=== PATIENT | male | born 1950 | race Caucasian/White ===

== ENCOUNTER → 2023-04-25 13:21 | Outpatient (REF) | payer MEDICARE, SELFPAY | LOC: RAD 13:21 | PROVIDERS: ATTENDING PHYSICIAN Internal Medicine | DX: M79.604 Pain in right leg (principal) | CPT/HCPCS: 73502; 73552; 73564 ==

== ENCOUNTER → 2023-05-07 12:51 | Outpatient (REF) | payer MEDICARE, SELFPAY ==
[2023-05-07 14:25] LABS: Blood Urea Nitrogen 30 mg/dl (9-20); Calcium 9.3 mg/dl (8.4-10.2); Carbon Dioxide 26 mmol/L (22-30); Chloride 100 mmol/L (98-107); Glucose 119 mg/dl (70-99); Potassium 4.5 mmol/L (3.5-5.1); Sodium 139 mmol/L (135-145); eGFR 58.73
== END ==
LOC: REG 12:51
PROVIDERS: ATTENDING PHYSICIAN Internal Medicine Cardiovascular Disease; FAMILY PHYSICIAN Internal Medicine
DX: I10 Essential (primary) hypertension (principal)
CPT/HCPCS: 36415; 80048

== ENCOUNTER 2023-06-24 06:23 | Inpatient (IN) | payer MEDICARE, SELFPAY ==
--- NOTE | 2023-06-03 09:48 | CM ---
Addendum entered by Tereza Hernandez 06/19/23 10:12:
Spoken again with patient. He obtained a rolling walker, forearm crutches, shower seat and hip kit. He states that his will be off from work for three days (she works from home).
Original Note:
Patient is scheduled for an elective R THR on 06/24/23. Spoke with patient prior to surgery via telephone. Introduced role of Orthopedic Navigator. Patient reports that he lives with his significant in a two story home. There are four steps to enter
and a flight of steps to the second floor. There is a full bathroom on the order entry clerk and he can have a first floor set up. 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 He uses a rollator
in the house and two walking sticks outside. He has no other DME. He has had VN services. PCP is Dr. Kin Morales.
Discussed orthopedic program and post surgical plans. Reviewed anticipated length of stay and that goal is for him to return home at discharge. Also reviewed outpatient PT and other options for discharge should he not be independent at discharge.
Patient is in agreement with tentative plan and will go directly to outpatient PT at [facility] if able to go home. He will have support from his significant other when he goes home.
Patient will complete online education.
Plan: Orthopedic Navigator will remain available to assist with the care of patient and will reassess discharge needs after surgery.
[2023-06-10 09:03] VITALS: BMI 22.0
[2023-06-10 10:09] LABS: Hematocrit 36.9 % (39.0-52.0); Hemoglobin 12.1 g/dL (13.0-18.0); Mean Corp Hgb Conc. 32.8 g/dL (33.0-37.0); Mean Corpuscular Hgb 28.5 pg (27.0-31.0); Mean Platelet Volume 10.3 fL (7.4-10.4); Platelet Count 283 10^3/uL (130-400); Red Blood Cell Count 4.24 10^6/uL (4.70-6.10); Red Cell Dist. Width 13.1 % (11.5-14.5); White Blood Cell Count 10.8 10^3/uL (4.8-10.8)
[2023-06-10 10:16] LABS: ALT (SGPT) 19 U/L (0-50); AST (SGOT) 21 U/L (17-59); Albumin 3.7 g/dl (3.5-5.0); Alkaline Phosphatase 165 U/L (38-126); Blood Urea Nitrogen 24 mg/dl (9-20); Calcium 9.2 mg/dl (8.4-10.2); Carbon Dioxide 24 mmol/L (22-30); Chloride 105 mmol/L (98-107); Estimated Creatinine Clearance 61 ml/min; Glucose 126 mg/dl (70-99); Sodium 137 mmol/L (135-145); Total Bilirubin 0.4 mg/dl (0.2-1.3); Total Protein 5.9 g/dl (6.3-8.2); eGFR > 60.00
[2023-06-10 14:41] VITALS: BMI 22.0
[2023-06-24] VITALS (15 sets, daily range): BP systolic 108–136; BP diastolic 59–74; PULSE 66; O2SAT 100; BMI 20.1
[2023-06-24] MEDS: NORMOSOL-R 1000 IV ×2 (09:11→12:59)
[2023-06-24] MEDS: TYLENOL 650 MG PO ×4 (09:12→23:00)
[2023-06-24] MEDS: CELEBREX 200 MG PO (09:12)
--- NOTE | 2023-06-24 12:34 | W.PN.UPDATE ---
Update Note
Progress Note Update
R hip OA s/p R GOOD w/ Dr Hdez 06/24/2023
DVT prophylaxis - ASA, b/l venous foot pumps
HTN - + parameters - monitor BP
GERD - add Pepcid HS
Balance difficulties, ambulatory dysfunction, and chronic left footdrop - on fall precautions
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
MGUS - non-invasive hgb in AM
Neurogenic bladder requiring self catheterization - continue self cath
- Add Flomax to help w/ urination
C. diff colitis 2004 - reportedly due to prolonged Prednisone use previously - minimize steroids post-op if able
Hypercholesterolemia
Coronary artery disease/myocardial infarction, 2010, status post PCI with stent x2
Ischemic cardiomyopathy, resolved
Lung abscess, 09/2004, status post right partial lobectomy
Chronic dyspnea on exertion
Recurrent small-bowel obstructions
Hirschsprung's disease, status post multiple surgical corrections
Colorectal cancer, 1999, status post transanal resection; recurrence in 2004, status post permanent colostomy, radiation, and chemotherapy
Non-Hodgkin lymphoma, 2015, status post chemotherapy
Lumbar degenerative disc disease
Insomnia
COVID-2019, without residual deficits
Prediabetes, A1c 6.0
Remote history of tobacco abuse
[2023-06-24] MEDS: ROXICODONE 5 MG PO ×2 (13:02→21:30)
--- NOTE | 2023-06-24 13:39 | PTCARENOTE ---
Patient received from PACU in bed; IVF infusing; Surgical site assessed with MOLYBDENUM STEAMER OPERATOR; Right hip aquacell C/D/I; Left side colostomy intact with patient's own appliance over stoma; Bilateral pedal pulses +2, tibial pulses +2; Patient able to lift
left leg, trace movement in right; Patient with baseline neuropathy to bilateral feet; Unable to feel feet and ankles at baseline; Assessment ongoing
[2023-06-24] MEDS: LIPITOR 10 MG PO (14:10)
[2023-06-24] MEDS: FLOMAX 0.400000000000000022 MG PO (14:10)
[2023-06-24] MEDS: ASPIRIN 325 MG PO (17:02)
[2023-06-24] MEDS: ANCEF 5 IV (17:02)
[2023-06-24] MEDS: COLACE 100 MG PO (20:14)
[2023-06-24] MEDS: BACTROBAN 2% OINTMENT 1 APPLIC NASAL (20:15)
[2023-06-24] MEDS: PEPCID 20 MG PO (21:29)
[2023-06-24] MEDS: DILAUDID 0.5 MG IV (23:16)
[2023-06-25] MEDS: ROXICODONE 10 MG PO ×2 (01:17→05:09)
[2023-06-25] MEDS: ANCEF 5 IV (01:18)
[2023-06-25 02:53] VITALS: BP 122/59
[2023-06-25] MEDS: TYLENOL 650 MG PO ×3 (05:07→11:02)
[2023-06-25 07:43] VITALS: BP 132/68
[2023-06-25] MEDS: ASPIRIN 325 MG PO (08:25)
[2023-06-25] MEDS: BACTROBAN 2% OINTMENT 1 APPLIC NASAL (08:25)
[2023-06-25] MEDS: CELEBREX 200 MG PO (08:25)
[2023-06-25] MEDS: COLACE 100 MG PO (08:26)
[2023-06-25] MEDS: LIPITOR 10 MG PO (08:26)
[2023-06-25] MEDS: FLOMAX 0.400000000000000022 MG PO (08:26)
[2023-06-25] MEDS: ROXICODONE 5 MG PO ×2 (08:34→12:35)
--- NOTE | 2023-06-25 08:43 | CM ---
Addendum entered by Tereza Hernandez 06/25/23 11:14:
Patient did well in therapy. He has no concerns about going home. He would like his significant other to be present for discharge instructions; RN aware.
Original Note:
Reviewed chart and held rounds with PT, OT and nursing. Patient admitted as planned for elective R THR. Met with patient at bedside. Confirmed information previously obtained for assessment. Also discussed discharge plans. The plan, at this time, is
for patient to return home at discharge. He will have support from his significant other when he goes home. Patient will go directly to outpatient PT and will go to [facility]. He has an appointment scheduled for Saturday, 06/25.
Patient has a rolling walker, cane, hip kit, [place] crutches and shower seat.
He will use the [facility] pharmacy for discharge prescriptions.
--- NOTE | 2023-06-25 09:49 | W.PN.ORTHO ---
Today's Communication / Plan
-
Await PT and OT recs.
D/c later today if remaining clinically stable.
Assessment
.
Distal Motor Intact: Yes
Dressing:
Clean, dry and intact.
Assessment:
R hip OA s/p Kala FUNK w/ Dr Hdez 06/24/2023
DVT prophylaxis - ASA, b/l venous foot pumps
HTN - + parameters - BPs overall stable
GERD - added Pepcid HS
Balance difficulties, ambulatory dysfunction, and chronic left footdrop - on fall precautions
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
MGUS - non-invasive hgb 12.2 POD 1
Neurogenic bladder requiring self catheterization - continue self cath
- Added Flomax during admission to help w/ urination
C. diff colitis 2004 - reportedly due to prolonged Prednisone use previously - minimize steroids post-op as able
Hypercholesterolemia
Coronary artery disease/myocardial infarction, 2010, status post PCI with stent x2
Ischemic cardiomyopathy, resolved
Lung abscess, 09/2004, status post right partial lobectomy
Chronic dyspnea on exertion
Recurrent small-bowel obstructions
Hirschsprung's disease, status post multiple surgical corrections
Colorectal cancer, 1999, status post transanal resection; recurrence in 2004, status post permanent colostomy, radiation, and chemotherapy
Non-Hodgkin lymphoma, 2015, status post chemotherapy
Lumbar degenerative disc disease
Insomnia
COVID-2019, without residual deficits
Prediabetes, A1c 6.0
Remote history of tobacco abuse
Plan
.
Surgery / Date: Kala joy/ Dr Hdez 06/24/2023
DVT Prophylaxis: Aspirin
Activity:
Out of bed.
PT/OT
Discharge Plan: Home w/ Outpatient PT
Subjective
.
.:
Patient resting comfortably in bed this AM.
R hip pain overall well tolerated w/ current pain meds.
Denies any new significant complaints.
Eager for potential d/c today.
Vital Signs and Labs
.
Vital Signs and Labs:
Lab Results
06/10/23 08:59
06/10/23 08:59
Temp Pulse Resp BP Pulse Ox
98.1 F 64 19 141/70 96
06/25/23 07:43 06/25/23 08:27 06/25/23 07:43 06/25/23 08:27 06/25/23 07:43
Non-invasive Hgb result: 12.2
Physical Exam
-
HEENT: No pallor, cyanosis, or jaundice. Throat clear.
NECK: Supple. No JVD.
RESPIRATORY: Lungs clear to auscultation.
CVS: S1, S2 normal. RRR.�
ABDOMEN: Soft, non-tender. No distension.
EXTREMITIES: Strength equal, no calf pain with palpation/dorsiflexion. Calves soft. Chronic L foot drop.
ASSISTANT WAREHOUSE MANAGER: AOx3. No focal deficits. service desk associate grossly intact
[2023-06-25 10:08] VITALS: BP 138/65; PULSE 67; O2SAT 97
[2023-06-25 10:58] VITALS: BP 118/58; PULSE 62; O2SAT 97
--- NOTE | 2023-06-25 11:14 | W.DS.TRANS ---
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
-
Discharge Instructions:
Sleep Apnea Risk Intermediate
Discharge Diagnosis/Procedures R hip OA s/p R GOOD w/ Dr Hdez 06/24/2023
Diet Regular
Activity As tolerated,With Walker
Driving Restrictions Not until seen by your Dr
Bathing Restrictions OK to Shower
Other Services PT
Wound Care Dressing to be removed 1 week post-surgery.
Juan Diego to be removed at 2 week follow-up
appointment with surgeon's office.
Instructions:
Stand-Alone Forms: Total Hip/Knee Replacement D/C
Changes to Home Medications: Yes
Discharge Medications:
DC Medications w/original date entered in [employer]
simvastatin 10 mg tablet 10 mg PO DAILY High cholesterol 08/25/14
mupirocin 2 % topical ointment 1 applic intranasal BID #1 tube 06/10/23
acetaminophen 500 mg tablet (Tylenol Extra Strength) 1,000 mg (2 x 500 mg) PO Q6H #60 tabs 06/25/23
amlodipine 10 mg tablet 10 mg PO DAILY #30 tabs 06/25/23
aspirin 325 mg tablet 325 mg PO DAILY #30 tabs 06/25/23
celecoxib 200 mg capsule 200 mg PO DAILY #30 caps 06/25/23
docusate sodium 100 mg capsule 100 mg PO BID #30 caps 06/25/23
famotidine 20 mg tablet 20 mg PO HS #30 tabs 06/25/23
irbesartan 300 mg tablet 300 mg PO DAILY #1 tab 06/25/23
ondansetron HCl 4 mg tablet 4 mg PO Q6H PRN nausea and vomiting #30 tabs 06/25/23
oxycodone 5 mg tablet 5 - 10 mg (1 - 2 x 5 mg) PO Q4H PRN moderate-severe pain #30 tabs 06/25/23
polyethylene glycol 3350 17 gram oral powder packet (Miralax) 17 g PO DAILY PRN Constipation #14 ea 06/25/23
Home Medication Changes
acetaminophen 500 mg tablet (Tylenol Extra Strength) 1,000 mg (2 x 500 mg) PO Q6H #60 tabs 06/25/23
aspirin 325 mg tablet 325 mg PO DAILY #30 tabs 06/25/23
celecoxib 200 mg capsule 200 mg PO DAILY #30 caps 06/25/23
docusate sodium 100 mg capsule 100 mg PO BID #30 caps 06/25/23
famotidine 20 mg tablet 20 mg PO HS #30 tabs 06/25/23
ondansetron HCl 4 mg tablet 4 mg PO Q6H PRN nausea and vomiting #30 tabs 06/25/23
oxycodone 5 mg tablet 5 - 10 mg (1 - 2 x 5 mg) PO Q4H PRN moderate-severe pain #30 tabs 06/25/23
polyethylene glycol 3350 17 gram oral powder packet (Miralax) 17 g PO DAILY PRN Constipation #14 ea 06/25/23
Pending Results: Yes (PTH surgical specimen)
[2023-06-25 11:29] VITALS: BP 136/65
== END 2023-06-25 13:03 | disposition home or self-care (01) | DRG 470 ==
LOC: 2 SOUTH 06:23
PROVIDERS: ADMITTING PHYSICIAN Specialist; FAMILY PHYSICIAN Internal Medicine
PROC: 0SR90JA Replacement of Right Hip Joint with Synthetic Substitute, Uncemented, Open Approach (ICD-10-PCS; 2023-06-24)
DX: M16.11 Unilateral primary osteoarthritis, right hip (principal); M87.851 Other osteonecrosis, right femur; Q43.1 Hirschsprung's disease; I10 Essential (primary) hypertension; E78.00 Pure hypercholesterolemia, unspecified; I25.10 Atherosclerotic heart disease of native coronary artery without angina pectoris; I25.5 Ischemic cardiomyopathy; K21.9 Gastro-esophageal reflux disease without esophagitis; M21.372 Foot drop, left foot; G62.89 Other specified polyneuropathies; M51.36 Other intervertebral disc degeneration, lumbar region; D47.2 Monoclonal gammopathy; N31.9 Neuromuscular dysfunction of bladder, unspecified; G47.00 Insomnia, unspecified; R73.03 Prediabetes; I25.2 Old myocardial infarction; Z95.5 Presence of coronary angioplasty implant and graft; Z87.19 Personal history of other diseases of the digestive system; Z87.09 Personal history of other diseases of the respiratory system; Z85.038 Personal history of other malignant neoplasm of large intestine; Z87.891 Personal history of nicotine dependence; Z92.21 Personal history of antineoplastic chemotherapy; Z92.3 Personal history of irradiation; Z86.16 Personal history of COVID-19; Z86.19 Personal history of other infectious and parasitic diseases; Z93.3 Colostomy status; Z79.82 Long term (current) use of aspirin; Z85.72 Personal history of non-Hodgkin lymphomas
CPT/HCPCS: 88304; 88311; 36415; 73502; 80053; 83036; 85027; 87070; 97110; 97116; 97162; 97166; 97530; 97535; C1713; C1776

== ENCOUNTER 2023-08-20 21:33 | Emergency (ER) | payer MEDICARE, SELFPAY ==
[2023-08-20 21:35] VITALS: BP 122/78
--- NOTE | 2023-08-20 21:48 | ED.GENMED ---
History of Present Illness
General
Chief Complaint: Urinary Symptoms
Source: patient
Exam Limitations: none
Time Seen by Provider: 08/20/23 21:50
Nursing documentation reviewed up to this point in time: agreed with
History of Present Illness
History of Present Illness:
Pt is a 72-year-old male PMH CO, colorectal CA with colostomy, underactive bladder, and recent UTI c/o blood in his urine x 1 hour. He has a recent hx of UTI positive for E. coli diagnosed approximately 2 weeks ago. He was treated with Abx at the
time of his diagnosis. He endorses cloudy urine and 'trace' amounts of blood during this time. Pt adds that he has still been experiencing these sx following completion of his antibiotic regimen. Pt reports that he self-catheterizes 7-8 times daily
for his underactive bladder, and notes that he noticed large amounts of blood following self-catheterization 1 hour ago. He denies fever, pain, burning, itching, N/V, abdominal pain, flank pain, and penile discharge.
-Delroy WHITE
Past History
Past History
ED Past Medical History: CAD, Cancer (Rectal/colon), GERD, HTN, Hypercholesterolemia, CO (with stents), Other (Hirschsprung's disease, and chronic inflammatory demyelinating polyneuropathy) and Other (Pneumonia, Bowel obstruction, Self caths 7-8
times daily, Colostomy, Parkinson like symptoms)
ED Past Surgical History: Bowel resection (with colostomy), Cardiac (stents X2), Urological and Other (R lower lobe removal)
Social History
Tobacco: Former smoker
Alcohol: None
Drug: None
Personal:
Living: alone
Employment: Disabled
Family History
Family History: Hypertension and CAD
Review of Systems
Review of Systems
Allergies reviewed?: Yes
Constitutional: Reports no symptoms
EENT: Reports no symptoms
Respiratory: Reports no symptoms
Cardiac: Reports no symptoms
ABD/GI: Reports no symptoms
: Reports difficulty voiding and other (hematuria )
Musculoskeletal: Reports no symptoms
Skin: Reports no symptoms
Neurological: Reports numbness
Endocrine: Reports no symptoms
Hematologic/Lymphatic: Reports no symptoms
Psychiatric: Reports no symptoms
Phy Exam
General Physical Exam
General Presentation: well appearing
General age: appears stated age
General Skin: warm
General Habitus: elderly
General Mental: alert
General Hydration: appears well hydrated
General Chronic Disability: other (colostomy)
Cardiovascular Exam
Cardiovascular Exam: regular rate/rhythm, no edema, no gallop and no murmur
Pulmonary Exam
Pulmonary Exam: lungs clear, no respiratory distress, no crackles and no wheezing
Genitourinary Exam Male
Exam Male: circumcised, no discharge, normal external genitalia, no evidence of trauma, no lesions, no testicular swelling and no testicular tenderness
Course
Orders/Labs/Results
Orders:
Orders
08/20/23 22:05
Electrocardiogram (*1) Stat
Reason for Study: Other
Other Reason for Exam: neuro symptoms
08/20/23 22:29
Stallings Placement- Treatment ONCE
Reason for insertion: Outlet obstruction
08/21/23 00:36
Urinalysis Reflex To Culture Urgent
08/20/23 22:05
08/20/23 22:05
Vital Signs
Initial and Last Documented VS:
Initial Vital Signs
Temp Pulse Resp BP Pulse Ox
98 F 78 24 122/78 98
08/20/23 21:35 08/20/23 21:35 08/20/23 21:35 08/20/23 21:35 08/20/23 21:35
Last Documented Vital Signs
Temp Pulse Resp BP Pulse Ox
98 F 78 24 122/78 98
08/20/23 21:35 08/20/23 21:35 08/20/23 21:35 08/20/23 21:35 08/20/23 21:35
MDM/Problems Addressed
Differential Diagnosis Includes:
cystitis, pyelonephritis, acute interstitial nephritis, traumatic catheter insertion, bladder CA, renal cell carcinoma.
MDM/Problems Addressed:
Electrocardiogram, Stallings Placement
*Pulse Oximetry
Patient hypoxic: no
*Critical Care Note
Total Time (30-74mins, 75-104mins- exclusive of procedures): Not Applicable
ED Attending Note
ED Attending Note
Patient seen and examined by attending physician: Yes
I performed the substantive portion of visit, reviewed & personally made and approve the management plan that is documented in note by myself or DEEPA.: Yes
ED Attending Note:
Pleasant 72-year-old male who presents with hematuria. Patient has been chronically self cathing due to MGUS or his bowel resections. He states that today when he went to cath he states that he had hematuria. He states that this occurred
approximate 1 hour prior to arrival. Patient was recently treated for a UTI for E. coli. Patient denies fever, chills, nausea or vomiting. Reports no abdominal pain. States that his ostomy has been having good output. Patient was seen in
conjunction with the PA student. I have reviewed and agree with the history and treatment plan presented. On my independent physical exam, patient is awake, alert, and oriented x3, minimal to no acute distress. Ostomy in place. No evidence of
hematuria.
08/21/2023 0035 AM: Urine is clearing up. Now it is slightly blood-tinged.
-
Portions of this chart may have been created with voice recognition software.� Occasional wrong word or��sound alike� substitutions may have occurred due to the inherent limitations of voice recognition software.
Discharge Plan
Departure
Patient Disposition: Home (Routine Discharge)
Date of Disposition: 08/21/23
Time of Disposition: 00:48
Patient with high blood pressure during this ER visit?: Yes
Condition: Good
Discharge Problem:
Hematuria
Instructions: Blood in the Urine (Hematuria), Adult (DC), BLOOD PRESSURE
Prescriptions:
No Action
simvastatin 10 MG tablet
10 mg PO DAILY
mupirocin 2 % ointment
1 applic intranasal BID Qty: 1 0RF
aspirin 325 mg Tablet
325 mg PO DAILY Qty: 30 0RF
Rx Instructions:
Take daily x4 weeks for blood clot prevention; then resume Aspirin 81 mg daily.
celecoxib 200 mg Capsule
200 mg PO DAILY Qty: 30 0RF
Rx Instructions:
Take daily with food.
DO NOT take within 2 hours of Aspirin.
docusate sodium 100 mg Capsule
100 mg PO BID Qty: 30 0RF
famotidine 20 mg Tablet
20 mg PO HS Qty: 30 0RF
Rx Instructions:
Take nightly while on Celebrex and Aspirin to prevent GI upset.
oxycodone 5 mg Tablet
5 - 10 mg PO Q4H PRN (Reason: moderate-severe pain) Qty: 30 0RF
Rx Instructions:
1 tab for moderate pain, 2 if severe.
Dx total joint.
acetaminophen [Tylenol Extra Strength] 500 mg tablet
1,000 mg PO Q6H Qty: 60 0RF
Rx Instructions:
DO NOT exceed >4000 mg daily.
ondansetron HCl 4 mg tablet
4 mg PO Q6H PRN (Reason: nausea and vomiting) Qty: 30 0RF
polyethylene glycol 3350 [Miralax] 17 gram powder in packet
17 g PO DAILY PRN (Reason: Constipation) Qty: 14 0RF
Rx Instructions:
Add to bowel regimen of Colace should no bowel movement occur within 48-72 hours post-surgery.
amlodipine 10 mg tablet
10 mg PO DAILY Qty: 30 0RF
Rx Instructions:
HOLD IF systolic blood pressure <130 while on Oxycodone.
irbesartan 300 mg tablet
300 mg PO DAILY Qty: 1 0RF
Rx Instructions:
HOLD IF systolic blood pressure <130 while on Oxycodone.
Referrals:
Kin Morales MD [Family Provider] -
Activity Restrictions/Additional Instructions:
As discussed, please follow-up with your urologist.
It was a pleasure meeting you and taking part in your care. We hope for your continued healing and wellness.
Please read discharge instructions in their entirety. However, they are for general education and may not describe your exact diagnosis at discharge. Information on your ER visit and medical conditions were discussed with you along with appropriate
follow up information...
If indicated, please take your medications as instructed and indicated on discharge paperwork.
Please schedule a follow up appointment as directed. Call to schedule an appointment
Please return to the emergency department with ANY change in, persisting, or worsening of symptoms. If any of your symptoms do not improve, or persist, or become more severe within 6-12 hours, please return to the emergency department for further
care.
Please return to the emergency department if you develop a headache, neck pain/stiffness, fever greater than 100.4F, chest pain, shortness of breath, persistent nausea, vomiting, slurred speech, difficulty walking, numbness/tingling, weakness, signs
of infection or any other symptoms that are worrisome to you.
If you have any questions or concerns please do not hesitate to call the Hospital at or E-mail me directly at [email or web address]
Interventions
Interventions:
*Risk Screen - Suicide Last Done: 08/20/23 21:35
*General Assessment Last Done: 08/20/23 23:38
*Neglect/Abuse Screening Last Done: 08/20/23 21:35
ED- Fall Risk Assessment Last Done: 08/20/23 23:08
*ED COVID-19 Vaccine History Last Done: 08/20/23 23:38
ED-Male Genitourinary Assessment Last Done: 08/20/23 23:08
Discharge Date and Time
Print Language: DUTCH
[2023-08-20 23:08] VITALS: BMI 21.8
[2023-08-21 01:07] VITALS: BP 146/91
[2023-08-21 01:10] LABS: Urine Albumin Trace (Neg - Trace); Urine Bilirubin Negative (Negative); Urine Character Slightly Cloudy (Clear); Urine Color Amber; Urine Glucose Negative (Negative); Urine Ketone Negative (Negative); Urine Leukocyte 2+ (Negative); Urine Nitrite Negative (Negative); Urine Occult Blood 4+ (Negative); Urine Specific Gravity 1.005 (<1.030); Urine Urobilinogen Negative (Neg - 1+)
[2023-08-21 01:22] LABS: Urine Bacteria Few (Negative); Urine Red Blood Cell >100 /HPF (0-2); Urine White Cell >100 /HPF (0-5)
== END 2023-08-21 01:08 | disposition home or self-care (01) ==
LOC: EMR 21:33
PROVIDERS: EMERGENCY PHYSICIAN Student in an Organized Health Care Education/Training Program; FAMILY PHYSICIAN Internal Medicine
DX: R31.9 Hematuria, unspecified (principal); N32.89 Other specified disorders of bladder; I10 Essential (primary) hypertension; I25.10 Atherosclerotic heart disease of native coronary artery without angina pectoris; E78.00 Pure hypercholesterolemia, unspecified; K21.9 Gastro-esophageal reflux disease without esophagitis; G61.81 Chronic inflammatory demyelinating polyneuritis; Q43.1 Hirschsprung's disease; G62.9 Polyneuropathy, unspecified; M19.90 Unspecified osteoarthritis, unspecified site; D64.9 Anemia, unspecified; M35.9 Systemic involvement of connective tissue, unspecified; I25.2 Old myocardial infarction; Z93.3 Colostomy status; Z79.82 Long term (current) use of aspirin; Z95.5 Presence of coronary angioplasty implant and graft; Z90.2 Acquired absence of lung [part of]; Z85.048 Personal history of other malignant neoplasm of rectum, rectosigmoid junction, and anus; Z87.440 Personal history of urinary (tract) infections; Z92.21 Personal history of antineoplastic chemotherapy; Z87.01 Personal history of pneumonia (recurrent); Z87.891 Personal history of nicotine dependence; Z98.0 Intestinal bypass and anastomosis status
CPT/HCPCS: 99284; 51702; 81003; 81015; 87086

== ENCOUNTER → 2023-10-17 16:39 | Outpatient (REF) | payer MEDICARE, SELFPAY | LOC: CLAB 16:39 | PROVIDERS: ATTENDING PHYSICIAN Surgery | DX: Z87.440 Personal history of urinary (tract) infections (principal); R31.9 Hematuria, unspecified | CPT/HCPCS: 87071; 87077; 87086; 88112 ==

== ENCOUNTER → 2023-12-20 06:40 | Outpatient (REF) | payer MEDICARE, SELFPAY ==
[2023-12-20 09:34] LABS: % Basophils 0.6 % (0-2); % Eosinophils 2.1 % (0-6); % Immature Granulocytes 0.5 % (0-0.5); % Lymphocytes 14.3 % (20.5-51.1); % Monocytes 7.4 % (1.7-9.3); % Neutrophils 75.1 % (42.2-75.2); Absolute Eosinophils 0.1 10^3/uL (0-0.7); Absolute Lymphocytes 0.9 10^3/uL (1.2-3.4); Absolute Monocytes 0.5 10^3/uL (0.1-0.6); Absolute Neutrophils 4.9 10^3/uL (1.4-6.5); Hematocrit 34.6 % (39.0-52.0); Hemoglobin 11.2 g/dL (13.0-18.0); Mean Corp Hgb Conc. 32.4 g/dL (33.0-37.0); Mean Corpuscular Volume 83.4 fL (80.0-94.0); Mean Platelet Volume 10.3 fL (7.4-10.4); Nucleated Red Blood Cells % 0 % (-); Platelet Count 253 10^3/uL (130-400); Red Blood Cell Count 4.15 10^6/uL (4.70-6.10); Red Cell Dist. Width 14.5 % (11.5-14.5); White Blood Cell Count 6.5 10^3/uL (4.8-10.8)
[2023-12-20 10:24] LABS: ALT (SGPT) 20 U/L (0-50); AST (SGOT) 25 U/L (17-59); Albumin 4.1 g/dl (3.5-5.0); Alkaline Phosphatase 129 U/L (38-126); Blood Urea Nitrogen 34 mg/dl (9-20); Calcium 9.4 mg/dl (8.4-10.2); Carbon Dioxide 23 mmol/L (22-30); Chloride 106 mmol/L (98-107); Glucose 101 mg/dl (70-99); HDL Cholesterol 75 mg/dl; LDL Cholesterol, Calculated 67 mg/dl; Potassium 4.6 mmol/L (3.5-5.1); Sodium 140 mmol/L (135-145); Total Bilirubin 0.5 mg/dl (0.2-1.3); Total Cholesterol 169 mg/dl (50-199); Total Protein 6.1 g/dl (6.3-8.2); Triglyceride 136 mg/dl (10-149); Very Low Density Lipoprotein 27 mg/dl (0-30); eGFR 49.16
== END ==
LOC: MRI 06:40
PROVIDERS: ATTENDING PHYSICIAN Specialist; FAMILY PHYSICIAN Internal Medicine; REFERRING PHYSICIAN Internal Medicine Cardiovascular Disease
DX: M25.552 Pain in left hip (principal); E78.2 Mixed hyperlipidemia
CPT/HCPCS: 36415; 72148; 73721; 80053; 80061; 85025

== ENCOUNTER → 2024-01-08 11:13 | Outpatient (REF) | payer MEDICARE, SELFPAY ==
[2024-01-08 14:06] LABS: Blood Urea Nitrogen 36 mg/dl (9-20); Calcium 9.2 mg/dl (8.4-10.2); Carbon Dioxide 23 mmol/L (22-30); Chloride 104 mmol/L (98-107); Glucose 89 mg/dl (70-99); Potassium 4.9 mmol/L (3.5-5.1); Sodium 141 mmol/L (135-145); eGFR 49.16
[2024-01-09 18:24] LABS: Hepatitis B Surface Antigen Negative (Negative)
[2024-01-09 18:41] LABS: Hepatitis B Core Ab, Total Negative (Negative); Hepatitis B Surface Antibody Negative
== END ==
LOC: REG 11:13
PROVIDERS: ATTENDING PHYSICIAN Internal Medicine; FAMILY PHYSICIAN Internal Medicine; REFERRING PHYSICIAN Internal Medicine Cardiovascular Disease
DX: I10 Essential (primary) hypertension (principal); D47.9 Neoplasm of uncertain behavior of lymphoid, hematopoietic and related tissue, unspecified; Z11.59 Encounter for screening for other viral diseases
CPT/HCPCS: 36415; 80048; 86704; 86706; 87340

== ENCOUNTER → 2024-01-24 14:15 | Outpatient (REF) | payer MEDICARE, SELFPAY | LOC: RAD 14:15 | PROVIDERS: ATTENDING PHYSICIAN Nurse Practitioner; FAMILY PHYSICIAN Internal Medicine | DX: J06.9 Acute upper respiratory infection, unspecified (principal) | CPT/HCPCS: 71046 ==

== ENCOUNTER → 2024-03-27 08:51 | Outpatient (REF) | payer MEDICARE, SELFPAY | LOC: RCS 08:51 | PROVIDERS: ATTENDING PHYSICIAN Physician Assistant Medical; FAMILY PHYSICIAN Internal Medicine | DX: R06.02 Shortness of breath (principal); I25.5 Ischemic cardiomyopathy | CPT/HCPCS: 93306 ==

== ENCOUNTER → 2024-04-02 15:03 | Outpatient (REF) | payer MEDICARE, SELFPAY | LOC: PAVMRI 15:03 | PROVIDERS: ATTENDING PHYSICIAN Psychiatry & Neurology Neurology with Special Qualifications in Child Neurology; FAMILY PHYSICIAN Internal Medicine | DX: R53.1 Weakness (principal) | CPT/HCPCS: 72148 ==

== ENCOUNTER → 2024-05-05 10:17 | Outpatient (REF) | payer MEDICARE, SELFPAY ==
[2024-05-05 11:25] LABS: Urine Albumin 1+ (Neg - Trace); Urine Bilirubin Negative (Negative); Urine Character Clear (Clear); Urine Color Yellow; Urine Glucose Negative (Negative); Urine Ketone Negative (Negative); Urine Leukocyte 2+ (Negative); Urine Nitrite Negative (Negative); Urine Occult Blood 1+ (Negative); Urine Specific Gravity 1.015 (<1.030); Urine Urobilinogen Negative (Neg - 1+)
[2024-05-05 13:44] LABS: Urine Bacteria Moderate (Negative); Urine Red Blood Cell 0-2 /HPF (0-2)
[2024-05-05 13:46] LABS: Urine Squamous Cell 0-2 /LPF (Few); Urine White Cell 21-25 /HPF (0-5)
== END ==
LOC: REG 10:17
PROVIDERS: ATTENDING PHYSICIAN Surgery; FAMILY PHYSICIAN Internal Medicine
DX: N39.0 Urinary tract infection, site not specified (principal)
CPT/HCPCS: 81003; 81015; 87077; 87086

== ENCOUNTER 2024-10-14 14:34 | Inpatient (IN) | payer MEDICARE, SELFPAY ==
[2024-10-14] VITALS (14 sets, daily range): BP systolic 149–171; BP diastolic 68–98; BMI 22.7; BMI 22.0
[2024-10-14] MEDS: ZOFRAN 4 MG IV ×2 (07:18→12:48)
[2024-10-14] MEDS: NSS 1000 IV ×2 (07:18→14:36)
[2024-10-14] MEDS: OMNIPAQUE 50 ML PO (07:18)
--- NOTE | 2024-10-14 07:28 | ED.GENMED ---
History of Present Illness
General
Chief Complaint: Abdominal Pain
Source: patient and spouse
Exam Limitations: none
Time Seen by Provider: 10/14/24 06:37
Nursing documentation reviewed up to this point in time: agreed with
History of Present Illness
History of Present Illness:
74-year-old male past medical history of hypertension hyperlipidemia, bowel surgery currently with ostomy heart disease presenting to the emergency department today with concerns of persistent vomiting since yesterday ongoing abdominal pain and
distension. Feels very similar to previous episodes of bowel obstruction.
Past History
Past History
ED Past Medical History: CAD, Cancer (Rectal/colon), GERD, HTN, Hypercholesterolemia, UT (with stents), Other (Hirschsprung's disease, and chronic inflammatory demyelinating polyneuropathy) and Other (Pneumonia, Bowel obstruction, Self caths 7-8
times daily, Colostomy, Parkinson like symptoms)
ED Past Surgical History: Bowel resection (with colostomy), Cardiac (stents X2), Urological and Other (R lower lobe removal)
Social History
Tobacco: Former smoker
Alcohol: None
Drug: None
Personal:
Living: alone
Employment: Disabled
Family History
Family History: Hypertension and CAD
Review of Systems
Review of Systems
Allergies reviewed?: Yes
All Other Systems: ROS reviewed and negative except as documented in HPI and ROS
Phy Exam
Physical Exam
Physical Exam:
GENERAL: Alert , in no apparent distress
EYE: pupils equal and reactive
NECK: Supple, no significant adenopathy.
ENT: o/p clr, mmm.
CARDIAC: Regular rate and rhythm .
LUNGS: Clear breath sounds bilaterally, no acute respiratory distress, no wheezes/rales/rhonchi
ABDOMEN: Slight distention to the abdomen with tenderness palpation ostomy present to the left lower quadrant
NEUROLOGICAL: Alert and oriented, no focal neuro deficits
SKIN: Warm and dry, skin intact.
MUSCULOSKELETAL: No edema, well perfused.
PSYCH: Normal and appropriate interaction.
Course
Orders/Labs/Results
Orders:
Orders
10/14/24 06:56
CT Abd/pel W Iv And Oral Contr Urgent
Comment:
Reason For Exam: vomtiing, abd pain colostomy
0.9% Sodium Chloride 1000 ml [Nss] 1,000 ml IV BOLUS
Iohexol [Omnipaque] See Protocol PO NOW STA
Ondansetron Injectable [Zofran] 4 mg IV NOW STA
10/14/24 07:16
Basic Metabolic Panel Urgent
Complete Blood Count/With Diff Urgent
Lactic Acid Urgent
Lipase Urgent
10/14/24 10:33
Potassium Urgent
Urinalysis Reflex To Culture Stat
Date Specimen was Collected: 10/14/24
Time Specimen was Collected: 10:32
Urine Microscopic Reflex Cult Stat
Urine Culture Stat
ALEXIS Source: U
Specimen Description:
Date Specimen was Collected: 10/14/24
Time Specimen was Collected: 10:32
Abnormal Lab Results
10/14/24 10/14/24
07:16 10:33
WBC 21.5 H 10^3/uL
(4.8-10.8)
RBC 4.34 L 10^6/uL
(4.70-6.10)
Hgb 12.4 L g/dL
(13.0-18.0)
Hct 37.4 L %
(39.0-52.0)
MPV 10.9 H fL
(7.4-10.4)
Abs Immat Gran (auto) 0.1 H 10^3/uL
(0-0.05)
Absolute Neuts (auto) 20.5 H 10^3/uL
(1.4-6.5)
Absolute Lymphs (auto) 0.3 L 10^3/uL
(1.2-3.4)
Neutrophils % 95.3 H %
(42.2-75.2)
Lymphocytes % 1.2 L %
(20.5-51.1)
BUN 45 H mg/dl
(9-20)
Creatinine 1.5 H mg/dL
(0.7-1.3)
Glucose 156 H mg/dl
(70-99)
Urine Ketones 1+ A
(Negative)
Leukocyte Esterase Rfl 1+ A
(Negative)
Urine WBC (Reflex) 21-25 A /HPF
(0-5)
Urine Bacteria (Reflex) Many A
(Negative)
Urine Albumin (Reflex) 2+ A
(Neg - Trace)
10/14/24 07:16
10/14/24 10:33
Vital Signs
Initial and Last Documented VS:
Initial Vital Signs
Temp Pulse Resp BP Pulse Ox
97.9 F 80 26 164/84 96
10/14/24 06:32 10/14/24 06:32 10/14/24 06:32 10/14/24 06:32 10/14/24 06:32
Last Documented Vital Signs
Temp Pulse Resp BP Pulse Ox
97.9 F 80 26 168/76 95
10/14/24 06:32 10/14/24 06:32 10/14/24 06:32 10/14/24 11:00 10/14/24 11:45
MDM/Problems Addressed
MDM/Problems Addressed:
74-year-old male presenting to the emergency department with worsening abdominal pain nausea and vomiting since yesterday. Does have an ostomy and multiple bowel surgeries in the past. Concern for bowel obstruction. CT scan confirming bowel
obstruction no signs of complication plan to admit for further treatment and management.
*Pulse Oximetry
SaO2: 96
Patient hypoxic: no (95)
*Critical Care Note
Total Time (30-74mins, 75-104mins- exclusive of procedures): Not Applicable
ED Attending Note
-
Portions of this chart may have been created with voice recognition software.� Occasional wrong word or��sound alike� substitutions may have occurred due to the inherent limitations of voice recognition software.
Discharge Plan
Departure
Patient Disposition: Admit
Date of Disposition: 10/14/24
Time of Disposition: 12:20
Admit to: Med/Surg
Admit to doctor: Sheu
Presentation/result/management discussed w/ accepting MD/DO: Hospitalist
Patient with high blood pressure during this ER visit?: No
Condition: Good
Covid-19: Not Applicable
Discharge Problem:
Small bowel obstruction
Prescriptions:
No Action
simvastatin 10 MG tablet
10 mg PO DAILY
mupirocin 2 % ointment
1 applic intranasal BID Qty: 1 0RF
aspirin 325 mg Tablet
325 mg PO DAILY Qty: 30 0RF
Rx Instructions:
Take daily x4 weeks for blood clot prevention; then resume Aspirin 81 mg daily.
celecoxib 200 mg Capsule
200 mg PO DAILY Qty: 30 0RF
Rx Instructions:
Take daily with food.
DO NOT take within 2 hours of Aspirin.
docusate sodium 100 mg Capsule
100 mg PO BID Qty: 30 0RF
famotidine 20 mg Tablet
20 mg PO HS Qty: 30 0RF
Rx Instructions:
Take nightly while on Celebrex and Aspirin to prevent GI upset.
oxycodone 5 mg Tablet
5 - 10 mg PO Q4H PRN (Reason: moderate-severe pain) Qty: 30 0RF
Rx Instructions:
1 tab for moderate pain, 2 if severe.
Dx total joint.
acetaminophen [Tylenol Extra Strength] 500 mg tablet
1,000 mg PO Q6H Qty: 60 0RF
Rx Instructions:
DO NOT exceed >4000 mg daily.
ondansetron HCl 4 mg tablet
4 mg PO Q6H PRN (Reason: nausea and vomiting) Qty: 30 0RF
polyethylene glycol 3350 [Miralax] 17 gram powder in packet
17 g PO DAILY PRN (Reason: Constipation) Qty: 14 0RF
Rx Instructions:
Add to bowel regimen of Colace should no bowel movement occur within 48-72 hours post-surgery.
amlodipine 10 mg tablet
10 mg PO DAILY Qty: 30 0RF
Rx Instructions:
HOLD IF systolic blood pressure <130 while on Oxycodone.
irbesartan 300 mg tablet
300 mg PO DAILY Qty: 1 0RF
Rx Instructions:
HOLD IF systolic blood pressure <130 while on Oxycodone.
Referrals:
Kin Morales MD [Family Provider, Internal Medicine]
Interventions
Interventions:
*Risk Screen - Suicide Last Done: 10/14/24 06:32
*General Assessment Last Done: 10/14/24 07:22
*Neglect/Abuse Screening Last Done: 10/14/24 06:32
*ED- Fall Risk Assessment Last Done: 10/14/24 07:22
*ED COVID-19 Vaccine History Last Done: 10/14/24 07:22
LQ-Suysbb-Pylxlxgevu Assessment Last Done: 10/14/24 07:22
Discharge Date and Time
Print Language: POLISH
[2024-10-14 07:59] LABS: Hematocrit 37.4 % (39.0-52.0); Hemoglobin 12.4 g/dL (13.0-18.0); Mean Corp Hgb Conc. 33.2 g/dL (33.0-37.0); Mean Corpuscular Volume 86.2 fL (80.0-94.0); Platelet Count 250 10^3/uL (130-400); Red Cell Dist. Width 13.0 % (11.5-14.5)
[2024-10-14 08:02] LABS: Blood Urea Nitrogen 45 mg/dl (9-20); Calcium 10.0 mg/dl (8.4-10.2); Carbon Dioxide 24 mmol/L (22-30); Chloride 105 mmol/L (98-107); Estimated Creatinine Clearance 41 ml/min; Glucose 156 mg/dl (70-99); Lipase 50 U/L (23-300); Sodium 141 mmol/L (135-145); eGFR 48.85
[2024-10-14 09:04] LABS: Nucleated Red Blood Cells % 0 % (-)
[2024-10-14 10:50] LABS: Urine Character Cloudy (Clear)
[2024-10-14 10:52] LABS: Potassium 4.5 mmol/L (3.5-5.1)
[2024-10-14 11:15] LABS: Urine White Cell 21-25 /HPF (0-5)
[2024-10-14 11:18] LABS: Urine Red Blood Cell 0-2 /HPF (0-2)
--- NOTE | 2024-10-14 13:22 | HPS.HSE ---
Family Physician
-
Family Physician: Kin Morales
Chief Complaint
-
Abdominal pain
History of Present Illness
This is a 74-year-old male with past medical history of CAD s/p stents, ischemic cardiomyopathy, colorectal cancer s/p transanal resection, recurrence in 2004, s/p permanent colostomy, radiation and chemotherapy, MGUS, Hirschsprung's disease s/p
multiple surgical correction who presents to the ED with worsening intermittent abdominal pain, nausea and vomiting episodes ongoing since yesterday. The patient reports symptoms are similar to his previous episodes of bowel obstruction. He has
required multiple abdominal surgeries pertinent to his history. He reports pain is generalized with no radiation anywhere else. He states he has been eating, drinking less due to this pain. In addition, he reports vomiting episodes. Denies blood
in vomit. He denies fever, denies chills. He denies urinary symptoms. He reports he self catheterizes due to chronic urinary retention. He denies chest pain, denies shortness of breath, denies palpitation.
Upon presentation to the ED, BP 164/84, pulse 80, temperature 97.9, respiratory rate 26, O2 sat 96% on room air
Medical History
Past Medical History
Past Medical History: Reports Other
Additional Past Medical History:
Osteoarthritis.
Hypertension.
Hypercyholesterolemia.
Coronary artery disease/myocardial infarction, 2010, status postPCI with stent x2.
Ischemic cardiomyopathy.
Lung abscess, 09/2004, status post right partial lobectomy.
Chronic dyspnea on exertion.
GERD.
Recurrent small-bowel obstructions.
Hirschsprung's disease, status post multiple surgical corrections.
Colorectal cancer, 1999, status post transanal resection recurrence in 2004, status post permanent colostomy, radiation, and chemotherapy.
Non-Hodgkin lymphoma, 2016, status post chemotherapy. Balance difficulties.
Ambulatory dysfunction.
Chronic left footdrop.
Anti-MAG peripheral neuropathy.
Lumbar degenerative disc disease.
MGUS.
Neurogenic bladder requiring self catheterization.
C. diff colitis 2004.
Insomnia.
COVID-2019, without residual deficits.
Prediabetes, A1c 6.0.
Remote history of tobacco abuse.
Past Surgical History: Reports Other (PCI with stent x2. 2. Right partial lobectomy. 3. Transanal resection of colon cancer. 4. Permanent colostomy. 5. Small intestinal bypass. 6. Multiple surgeries for Hirschsprung's disease. 7. Abdominal hernia
repair and hydrocelectomy. 8. Multiple colonoscopies. )
Social History
Tobacco: Former Smoker
Alcohol: None
Drug: None
Family History
Family History: Not pertinent
Allergies / Home Medications
Allergies reflects when Allergies were last updated in [facility].
Home Medications with original date entered in [facility]
Allergy/Medication List:
Allergies
Allergy/AdvReac Type Severity Reaction Status Date / Time
No Known Allergies Allergy Verified 08/20/23 21:38
Home Medications
simvastatin 10 mg tablet 10 mg PO DAILY High cholesterol 08/25/14
amlodipine 10 mg tablet 10 mg PO DAILY #30 tabs 06/25/23
irbesartan 300 mg tablet 300 mg PO DAILY #1 tab 06/25/23
efgartigimod cj 1008 [id number] 11,200 unit/5.6 mL subcut soln (Vyvgart Hytrulo) 5.6 ml SC 10/14/24
methenamine hippurate 1 gram tablet 1 g PO DAILY 10/14/24
Review of Systems
-
A 12 point ROS was completed and negative except as noted: Yes
Constitutional: Reports See HPI
EENT: Reports No Symptoms
Respiratory: Reports No Symptoms
Cardiac: Reports No Symptoms
Abdomen/GI: Reports Abdominal Pain, Nausea and Vomiting
Physical Exam
Vital Signs
Vital Signs
Temp Pulse Resp BP Pulse Ox
97.9 F 80 26 152/68 96
10/14/24 06:32 10/14/24 06:32 10/14/24 06:32 10/14/24 13:00 10/14/24 13:00
Physical Exam
General: Well Developed and Pain
HEENT: NormoCephalic
Respiratory: Clear
Cardiac: S1/S2 and Regular Rhythm
GI: Soft, Tender, Distended and Ostomy
Musculoskeletal: No Edema
Neuro: AO x 3
Psych: Calm
Laboratory Results
-
10/14/24 07:16
10/14/24 10:33
Laboratory Results
Lactic Acid 1.1 mmol/L (0.7-2.0) 10/14/24 07:16
Total Bilirubin Cancelled 10/14/24 07:16
AST Cancelled 10/14/24 07:16
ALT Cancelled 10/14/24 07:16
Alkaline Phosphatase Cancelled 10/14/24 07:16
Lipase 50 U/L (23-300) 10/14/24 07:16
Impression/Plan
-
Assessment/plan
#Small bowel obstruction likely secondary to additions
-CT abdomen showing dilated fluid and air-filled small bowel loops with transition point and collapsed distal small bowel loops findings compatible with SBO
-Keep n.p.o., IV fluids
-Consider NG tube decompression if persistent vomiting
-General Surgery consult
-Pain medication, antinausea medications
-Monitor WBC, temperature curve
#GRAHAM
-Likely prerenal from vomiting/volume depletion in the setting of SBO
-IV fluids
-Avoid nephrotoxins
-Monitor BMP
#Chronic Urinary retention with self-catheterization
-Can continue self-cath
-UA positive, urine culture pending. Asymptomatic
#Essential hypertension
-Hold irbesartan, Continue amlodipine
#Hypercholesterolemia
-Continue simvastatin
#Right adrenal adenoma- 1.4 cm, stable
Outpatient endocrine follow-up
#History of CAD s/p stents
#Ischemic cardiomyopathy
-No acute chest pain
#Colorectal cancer s/p resection/colostomy
-Colostomy bag intact, no acute issues
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
-continue home regimen Vyvgart
#History of Hirschsprung's disease
#Chronic Inflammatory Demyelinating Polyneuropathy
-Patient ambulates with crutches
CODE STATUS full code
DVT prophylaxis Lovenox
--- NOTE | 2024-10-14 13:55 | W.PN.UPDATE ---
Addendum entered and electronically signed by Zeenat Shook MD 10/14/24 15:50:
Reactive leukocytosis
-no e/o infection
-continue to monitor daily
MGUS
-patient takes Vyvgart every , will bring in this medication from home
Original Note:
Update Note
Progress Note Update
This is an addendum to H&P written by resident physician Dr. Moran
I saw and examined the patient.
The resident physician's note was reviewed and I agree with the note.
Comment:
Mr. James Bob is a 74 yo man with hx essential HTN, ambulatory dysfunction with chronic left foot drop, CAD s/p PCI, neurogenic bladder requiring self catheterization, Hirschsprung's disease s/p multiple surgeries, colon cancer s/p bowel
resection (with colostomy), CKD III presents to the ER with persistent vomiting.
Triage VS: T 97.9, P 80, RR 26, BP 164/84, SpO2 96%
On exam patient is awake, alert, oriented x 3, conversant, in mild discomfort 2/2 nausea, abdomen distended and tender in all 4 quadrants, no rebound or guarding, ostomy present, no LE swelling
LABS: WBC 21.5, Hg 12.4, PLT 250, Na 141, K+ 4.5, Co 105, CO2 24, BUN 45, Cr 1.5, Glucose 156
[address] 1.1
CT A/P
IMPRESSION: CT findings compatible with small bowel obstruction as described. No evidence of free intraperitoneal air.
Status post rectal surgery with left lower quadrant colostomy.
Air is present within the urinary bladder as well as the left ureter and left renal pelvis, and patient reportedly self catheterizes. Air is likely introduced from catheterization. Please correlate with any evidence for ascending urinary tract
infection.
Bony degenerative changes as described. Right hip prosthesis with resultant streak artifact.
Small Bowel Obstruction
-admit to telemetry
-NPO, patient wishes to avoid NGT
-IV Zofran/Compazine PRN
-pain control, avoid Toradol with Radha
-IVF
RADHA
-patient denies history CKD
-IVF as above
-hold CARE COMPANION ARB
CAD s/p PCI
-patient states he isn't on an aspirin given history bleeding
Neurogenic Bladder, patient self-catheterizes
Essential HTN
-hold CARE COMPANION Irbesartan given RADHA
-resume Amlodipine when can tolerate PO
DVT PPx Lovenox subQ
FULL CODE
[2024-10-14] MEDS: COMPAZINE 10 MG IV (14:35)
--- NOTE | 2024-10-14 14:54 | CON.GS ---
Consultation
-
Date/Time Consultation Performed: 10/14/24
Requesting Provider: Boone
Performing Provider: Hillary
Reason for Consultation: SBO
Medical History
-
Chief Complaint: Abd pain
History of Present Illness:
74M with long history of recurrent SBO, hx of Hirschsprung's with multiple operations, APR for rectal CA, small bowel bypass for SBO by Dr Watson and operation here by Dr Gross (suspect ex-lap, DEEPA, possible SBR) for SBO after which he was told he
has an extremely hostile abdomen. Over the last day he has had progressive crampy severe intermittent abd pain, generalized, similar to prior SBO episodes. His colostomy stopped putting out gas or stool. This progressed to vomiting. He endorses
eating a lot of fresh melon for the two days prior which is not typical for him. Denies f/c.
Past Medical History
Past Medical History: CAD, GERD, HTN, Hypercholesterolemia and Other (as per HPI, cardiomyopathy, NHL, peripheral neuropathy, neurogenic bladder requiring st cath, c diff)
Past Surgical History: Cardiac (stents) and Other (as per HPI, hernia repair)
Social History
Tobacco: Former Smoker
Alcohol: None
Drug: None
Family History
Family History: Reviewed & Noncontributory
Allergies / Home Medications
Allergy/AdvReac Type Severity Reaction Status Date / Time
No Known Allergies Allergy Verified 08/20/23 21:38
�Medication �Instructions �Recorded �Confirmed �Type
simvastatin 10 mg tablet 10 mg PO DAILY High cholesterol 08/25/14 10/14/24 History
amlodipine 10 mg tablet 10 mg PO DAILY #30 tabs 06/25/23 10/14/24 Rx
irbesartan 300 mg tablet 300 mg PO DAILY #1 tab 06/25/23 10/14/24 Rx
efgartigimod cj 1008 5.6 ml SC TH 10/14/24 10/14/24 History
vq-vkawbvri-zpvj 11,200 unit/5.6
mL subcut soln (Vyvgart Hytrulo)
methenamine hippurate 1 gram tablet 1 g PO DAILY 10/14/24 10/14/24 History
Review of Systems
-
A 10 point review of systems was completed, and was negative except as per HPI.
Physical Exam
Vital Signs
Temp Pulse Resp BP Pulse Ox
97.9 F 80 26 162/71 97
10/14/24 06:32 10/14/24 06:32 10/14/24 06:32 10/14/24 14:00 10/14/24 14:38
10/13/24 10/14/24 10/15/24
06:59 06:59 06:59
Actual Weight 65.6 kg
Body Mass Index (BMI) 22.7
Lab Results
10/14/24 07:16
10/14/24 10:33
WBC 21.5 10^3/uL (4.8-10.8) H 10/14/24 07:16
Hgb 12.4 g/dL (13.0-18.0) L 10/14/24 07:16
Hct 37.4 % (39.0-52.0) L 10/14/24 07:16
Plt Count 250 10^3/uL (130-400) 10/14/24 07:16
Abs Immat Gran (auto) 0.1 10^3/uL (0-0.05) H 10/14/24 07:16
Neutrophils % 95.3 % (42.2-75.2) H 10/14/24 07:16
Physical Exam
General: Well Developed and No Apparent Distress
GI: Soft, Tender (diffuse moderate ttp without guarding), Distended and Other (stoma appliance flat)
Skin: Warm and Dry
Neuro: AO x 3
Psych: Calm
Data Reviewed
-
CT Scan: Image Personally Visualized and interpreted, Report Reviewed by me, Discussed with Physician and Discussed with Patient
Labs: Labs Reviewed by me and Discussed with Physician
Old Records: Reviewed
Assessment / Plan
-
74M with SBO in setting of dietary indiscretion and hx of multiple abdominal operations
AFVSS, diffuse moderate ttp on exam with distention, no guarding, flat appliance
WBC 21.[address] with dilated sb loops, air and stool in colon, large dilated loop in pelvis with sb feces sign, suspect transition point in this area, no signs of bowel threat of compromise
Plan:
Hospitalist admit
NPO/IVF
PRN antiemetics, if vomiting proceed with NGT
PRN pain meds
Monitor for stoma output
Ambulate
DVT ppx
GS will follow
[2024-10-14 15:35] LABS: Magnesium 2.1 mg/dl (1.6-2.3)
[2024-10-14] MEDS: LOVENOX 40 MG SC (17:44)
[2024-10-14] MEDS: DILAUDID 0.5 MG IV (17:51)
[2024-10-14] MEDS: DILAUDID 0.25 MG IV (20:25)
[2024-10-15 00:20] VITALS: BP 124/61
[2024-10-15 03:00] VITALS: BP 128/66
[2024-10-15] MEDS: NSS 1000 IV (03:42)
[2024-10-15 07:00] VITALS: BP 134/67
--- NOTE | 2024-10-15 08:13 | W.PN.GS2 ---
Today's Communication / Plan
-
`
Assessment / Plan
-
Assessment: 74 y/o male with recurrent pSBO likely d/t adhesions in setting of extensive prior surgical hx with permanent end colostomy likely insetting of dietary indiscretion with melons
AFVSS
clinically resolving
Plan: full liquid diet
okay for d/c home today from surgical standpoint if alessandro liquid PO challenge as pt has experienced pSBO multiple times and aware of how to resume dietary intake
Subjective Data
-
Date of Service: October 15, 2024
pt seen and examined
reports that feels much better
no abdominal pain overnight
no nausea or vomiting
ostomy with flatus and stool now
Objective Data
-
Vital Signs
Temp Pulse Resp BP Pulse Ox
98.3 F 63 20 128/66 95
10/15/24 03:00 10/15/24 03:00 10/15/24 03:00 10/15/24 03:00 10/15/24 03:00
Calcium 10.0 mg/dl (8.4-10.2) 10/14/24 07:16
Phosphorus 4.1 mg/dl (2.5-4.5) 10/14/24 10:33
Magnesium 2.1 mg/dl (1.6-2.3) 10/14/24 10:33
Total Bilirubin Cancelled 10/14/24 07:16
AST Cancelled 10/14/24 07:16
ALT Cancelled 10/14/24 07:16
Alkaline Phosphatase Cancelled 10/14/24 07:16
Total Protein Cancelled 10/14/24 07:16
Albumin Cancelled 10/14/24 07:16
Physical Exam
-
NAD AAOx3
ABD: soft, minimal tenderness on palpation, no R/R/G
left sided ostomy appliance in place - flat but pt reports he recently emptied contents
[2024-10-15 08:25] LABS: Hematocrit 32.2 % (39.0-52.0); Hemoglobin 10.6 g/dL (13.0-18.0); Mean Corp Hgb Conc. 32.9 g/dL (33.0-37.0); Mean Corpuscular Volume 86.3 fL (80.0-94.0); Nucleated Red Blood Cells % 0 % (-); Platelet Count 185 10^3/uL (130-400); Red Cell Dist. Width 13.2 % (11.5-14.5)
[2024-10-15 08:54] LABS: ALT (SGPT) 16 U/L (0-50); AST (SGOT) 18 U/L (17-59); Albumin 3.9 g/dl (3.5-5.0); Alkaline Phosphatase 90 U/L (38-126); Blood Urea Nitrogen 40 mg/dl (9-20); Calcium 8.8 mg/dl (8.4-10.2); Carbon Dioxide 21 mmol/L (22-30); Chloride 114 mmol/L (98-107); Estimated Creatinine Clearance 42 ml/min; Glucose 97 mg/dl (70-99); Magnesium 2.2 mg/dl (1.6-2.3); Potassium 4.3 mmol/L (3.5-5.1); Sodium 143 mmol/L (135-145); Total Protein 5.5 g/dl (6.3-8.2); eGFR 53.07
[2024-10-15] MEDS: NORVASC 10 MG PO (09:03)
[2024-10-15] MEDS: HIPREX 1 GRAM PO (09:03)
--- NOTE | 2024-10-15 09:35 | W.PN.UPDATE ---
Update Note
Progress Note Update
I saw and evaluated the patient. I reviewed the resident�s note and agree with findings and plan as documented in the resident�s note.
Patient states he feels back at his baseline. Tolerated full liquids.
Gen: NAD, AAOx3.
Eyes: EOMI, PERRLA, no scleral icterus.
Neck: supple.
CV: RRR, +S1/S2, no m/r/g.
Resp: CTAB, no rales, wheezes, or rhonchi.
Abd: +BS, soft, mild tenderness to palpation, ND
Skin: No rashes.
Neuro: CN 2-12 intact, non-focal.
Psych: Normal mood and affect.
CT A/P: CT findings compatible with small bowel obstruction as described. No evidence of free intraperitoneal air. Status post rectal surgery with left lower quadrant colostomy. Air is present within the urinary bladder as well as the left ureter
and left renal pelvis, and patient reportedly self catheterizes. Air is likely introduced from catheterization. Please correlate with any evidence for ascending urinary tract infection. Bony degenerative changes as described. Right hip prosthesis
with resultant streak artifact.
Acute SBO:
-was NPO and pt wanted avoid NGT
-s/p IVFs
-seen by surgery, SBO resolving, advanced to full liquids
-IV Zofran/Compazine PRN
-pain control, avoid Toradol with CKD3a
Other problems:
Reactive leukocytosis, resolved
MGUS
CAD s/p PCI: patient states he isn't on an aspirin given history bleeding, resume statin
Neurogenic Bladder, patient self-catheterizes
GRAHAM has been ruled out. Cr in December 2023 was 1.4 and Cr is 1.4 currently. Will need outpt renal f/u. Likely CKD3a.
Essential HTN: resume ARB/Norvasc
FULL/Lovenox
Medically cleared for discharge.
Total time spent on d/c = 31 min. This included today's physical exam, progress note, review of laboratory and diagnostic data, preparation of discharge documents and prescriptions, and discussions about the pt's hospital course and discharge plan
with the patient and other director biomedical engineering involved in the patient's care.
--- NOTE | 2024-10-15 10:13 | CM ---
physiotherapy practice manager reviewed patient's chart and met with patient and patient reports he lives with his partner in a 2 story home, patient has a first floor set up, patient is independent with adl's and uses crutches with ambulation. Plan is to home no
needs when stable.
PCP: Dr. Morales
Pharmacy: [facility]
[2024-10-15 11:00] VITALS: BP 140/64
--- NOTE | 2024-10-15 11:28 | W.PN.HOSP.TC ---
Today's Communication/Plan
-
Full liquid diet today, if able to tolerate, per surgery he is okay to be discharged home and advance diet as tolerated
Assessment / Plan
Assessment / Plan
Mr. Bob is a 74-year-old male with history of CAD s/p PCI, ischemic cardiomyopathy, colorectal cancer s/p transanal resection with recurrence in 2004 s/p permanent colostomy & radiation + chemotherapy, MGUS, Hirschsprung's disease s/p
multiple surgical corrections, recurrent SBOs, neurogenic bladder, CKD3a, and essential hypertension, who presented to the ED on 10/14 with worsening intermittent abdominal pain, N/V found to have SBO seen on CT A/P. Surgery was consulted and he was
admitted to [facility] [place] for further management.
CT A/P 10/14: CT findings compatible with small bowel obstruction as described. No evidence of free intraperitoneal air. Status post rectal surgery with left lower quadrant colostomy. Air is present within the urinary bladder as well as the left
ureter and left renal pelvis, and patient reportedly self catheterizes. Air is likely introduced from catheterization. Please correlate with any evidence for ascending urinary tract infection. Bony degenerative changes as described. Right hip
prosthesis with resultant streak artifact.
#Acute SBO
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
Of note, patient has had these recurrently and knows how to manage appropriately.
- Surgery consulted, appreciate recs:
--N.p.o. (patient wants to avoid NGT)
--S/p IV fluids
--Surgery advance diet to full liquids, ADAT
--IV Zofran and Compazine as needed
--Pain control as needed
- If he tolerates full liquid diet, he is okay to be discharged home and advance his diet as tolerated given that he has managed this successfully in the past.
#MGUS
Patient's partner will bring this in for him today 10/15.
- Continue Vyvgart Hytrulo 5.6 mL SC
#CAD s/p PCI
#Ischemic cardiomyopathy
- Continue simvastatin 10 mg daily
#Essential hypertension
- Continue irbesartan 300 mg daily
- Continue amlodipine 10 mg daily
#Neurogenic bladder
Patient self catheterizes.
- Continue Hiprex 1 g daily
#CKD3a
Creatinine 1.4. This was the same in December 2023.
- He will need outpatient follow-up with nephrology.
DVT prophylaxis: Lovenox
CODE STATUS: Full
Anticipated Discharge: Today
Subjective/Interval History
-
Date of Service: October 15, 2024
-This morning, he is sitting up in chair on the phone. He reports that he feels great and 'knows his body's course.'He has no acute complaints nor nausea, vomiting, pain currently.
-He takes [email or web address] every , and asked if his partner Mayuri could bring this in for him. I spoke with nursing to make this accommodation.
Objective Data
-
Labs:
Laboratory Results
10/15/24
08:02
WBC 7.2
Hgb 10.6 L
Hct 32.2 L
Plt Count 185 D
Sodium 143
Potassium 4.3
Chloride 114 H
Carbon Dioxide 21 L
BUN 40 H
Creatinine 1.4 H
Glucose 97
Calcium 8.8
Total Bilirubin 0.7
AST 18
ALT 16
Alkaline Phosphatase 90
Vital Signs:
Vital Signs
Temp Pulse Resp BP Pulse Ox
98.1 F 58 14 134/67 96
10/15/24 07:00 10/15/24 09:03 10/15/24 07:00 10/15/24 09:03 10/15/24 07:00
Review of Systems
-
History Source: Patient
All other systems: Reviewed and negative
Physical Exam
-
General: Well Developed, Well Nourished, No Apparent Distress, Comfortable and Conversant
HEENT: Normocephalic, Atraumatic and Moist Mucous Membranes
Respiratory: Clear to Auscultation
Cardiac: Regular Rhythm and S1/S2
GI: Soft, Nontender and Ostomy
Musculoskeletal: No Clubbing, No Cyanosis and No Edema
Skin: Warm and Dry
Neuro: AO x 3
Psych: Calm and Intact Judgement/Insight
[2024-10-15] MEDS: NSS IV (11:33)
--- NOTE | 2024-10-15 13:16 | W.DCSUMMARY ---
Discharge Summary
Discharge Data
Date of Admission: 10/14/24
Date of Discharge: 10/15/24
-
Pending Results: No
Hospital Course
Discharging Physician : Juli Valdes MD/SULLY
Disposition : Home
Principal Discharge diagnosis : SBO
Hospital Course : Mr. Bob is a 74-year-old male with history of CAD s/p PCI, ischemic cardiomyopathy, colorectal cancer s/p transanal resection with recurrence in 2004 s/p permanent colostomy & radiation + chemotherapy, MGUS, Hirschsprung's
disease s/p multiple surgical corrections, recurrent SBOs, neurogenic bladder, CKD3a, and essential hypertension, who presented to the ED on 10/14 with worsening intermittent abdominal pain, N/V found to have SBO seen on CT A/P. Surgery was
consulted and he was admitted to [facility] [place] for further management. He was discharged on 10/15.
See below for hospital course by problem:
1. 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
Of note, patient has had these recurrently and knows how to manage appropriately.
- Surgery consulted, appreciate recs:
--N.p.o. (patient wants to avoid NGT)
--S/p IV fluids
--Surgery advance diet to full liquids, ADAT
--IV Zofran and Compazine as needed
--Pain control as needed
- Per surgery, if he tolerates full liquid diet 10/15, he is okay to be discharged home and advance his diet as tolerated given that he has managed this successfully in the past.
2. MGUS
Patient's partner will bring this in for him today 10/15.
- Continue Vyvgart Hytrulo 5.6 mL SC
3. CAD s/p PCI
4. Ischemic cardiomyopathy
- Continue simvastatin 10 mg daily
5. Essential hypertension
- Continue irbesartan 300 mg daily
- Continue amlodipine 10 mg daily
6. Neurogenic bladder
Patient self catheterizes.
- Continue Hiprex 1 g daily
7. CKD3a
Creatinine 1.4. This was the same in December 2023.
- He will need outpatient follow-up with nephrology.
Important imaging findings :
CT A/P 10/14: CT findings compatible with small bowel obstruction as described. No evidence of free intraperitoneal air. Status post rectal surgery with left lower quadrant colostomy. Air is present within the urinary bladder as well as the left
ureter and left renal pelvis, and patient reportedly self catheterizes. Air is likely introduced from catheterization. Please correlate with any evidence for ascending urinary tract infection. Bony degenerative changes as described. Right hip
prosthesis with resultant streak artifact.
Procedure findings :
Discharge Plan
-
Patient Disposition: Home (Routine Discharge)
Discharge Diagnosis/Procedures: SBO
Condition: Good
Diet: Other diet
Additional Diets: Advance as tolerated given SBO
Activity: No restrictions
Driving Restrictions: As prior to admission
Bathing Restrictions: None
Referrals:
Kin Morales MD [Family Provider, Internal Medicine] - in less than 1 week
Referral Note: Follow-up with your PCP within a week of this hospitalization about the SPO and your creatinine (suspecting CKD3a)
Prescriptions:
Continued
simvastatin 10 MG tablet
10 mg PO DAILY
amlodipine 10 mg tablet
10 mg PO DAILY Qty: 30 0RF
Rx Instructions:
HOLD IF systolic blood pressure <130 while on Oxycodone.
irbesartan 300 mg tablet
300 mg PO DAILY Qty: 1 0RF
Rx Instructions:
HOLD IF systolic blood pressure <130 while on Oxycodone.
methenamine hippurate 1 gram Tablet
1 g PO DAILY
Vyvgart Hytrulo 1,008 mg-11,200 unit/5.6 mL solution
5.6 ml SC TH
Discharge Orders:
Discharge Patient (As Directed); Ordered 10/15/24
Ordered By: Nando Welch
Discharge Date and Time
Print Language: SLOVENIAN
[2024-10-15 13:29] VITALS: BP 146/70
[2024-10-15] MEDS: NON-FORMULARY ITEM 5.6 ML SC (13:31)
--- NOTE | 2024-10-15 13:45 | PTCARENOTE ---
Patient's discharge packet reviewed with patient. All questions and/or concerns addressed. Set of vitals completed. IV removed. Patient to call his significant other, Mayuri, for hot die picker to discharge to home.
== END 2024-10-15 14:20 | disposition home or self-care (01) | DRG 389 ==
LOC: 4 WEST ACU 14:34
PROVIDERS: Physician Assistant; Student in an Organized Health Care Education/Training Program; ADMITTING PHYSICIAN Student in an Organized Health Care Education/Training Program; ATTENDING PHYSICIAN Internal Medicine; CONSULT PHYSICIAN Surgery; EMERGENCY PHYSICIAN Emergency Medicine; FAMILY PHYSICIAN Internal Medicine
DX: K56.51 Intestinal adhesions [bands], with partial obstruction (principal); G61.81 Chronic inflammatory demyelinating polyneuritis; Q43.1 Hirschsprung's disease; I12.9 Hypertensive chronic kidney disease with stage 1 through stage 4 chronic kidney disease, or unspecified chronic kidney disease; N18.31 Chronic kidney disease, stage 3a; E78.00 Pure hypercholesterolemia, unspecified; I25.10 Atherosclerotic heart disease of native coronary artery without angina pectoris; D47.2 Monoclonal gammopathy; K21.9 Gastro-esophageal reflux disease without esophagitis; D72.823 Leukemoid reaction; N31.9 Neuromuscular dysfunction of bladder, unspecified; I25.5 Ischemic cardiomyopathy; M19.90 Unspecified osteoarthritis, unspecified site; R26.2 Difficulty in walking, not elsewhere classified; M21.372 Foot drop, left foot; M51.369 Other intervertebral disc degeneration, lumbar region without mention of lumbar back pain or lower extremity pain; E86.9 Volume depletion, unspecified; G47.00 Insomnia, unspecified; R73.03 Prediabetes; D35.01 Benign neoplasm of right adrenal gland; Z96.641 Presence of right artificial hip joint; Z92.21 Personal history of antineoplastic chemotherapy; Z92.3 Personal history of irradiation; Z87.891 Personal history of nicotine dependence; Z93.3 Colostomy status; Z95.5 Presence of coronary angioplasty implant and graft; Z90.2 Acquired absence of lung [part of]; I25.2 Old myocardial infarction; Z85.038 Personal history of other malignant neoplasm of large intestine; Z85.048 Personal history of other malignant neoplasm of rectum, rectosigmoid junction, and anus; Z85.72 Personal history of non-Hodgkin lymphomas; Z90.49 Acquired absence of other specified parts of digestive tract
CPT/HCPCS: 74018; 74177; 80048; 80053; 81003; 81015; 83605; 83690; 83735; 84100; 84132; 85025; 87077; 87086; 93005; 96361; 96374; 96376; 99285; Q9967

== ENCOUNTER → 2024-11-27 11:28 | Outpatient (REF) | payer MEDICARE, SELFPAY | LOC: RAD 11:28 | PROVIDERS: ATTENDING PHYSICIAN Student in an Organized Health Care Education/Training Program; FAMILY PHYSICIAN Internal Medicine | DX: R05.3 Chronic cough (principal) | CPT/HCPCS: 71046 ==

== ENCOUNTER → 2024-12-15 11:09 | Outpatient (REF) | payer MEDICARE, SELFPAY ==
[2024-12-15 12:25] LABS: Hematocrit 33.4 % (39.0-52.0); Hemoglobin 10.9 g/dL (13.0-18.0); Mean Corp Hgb Conc. 32.6 g/dL (33.0-37.0); Mean Corpuscular Volume 87.0 fL (80.0-94.0); Nucleated Red Blood Cells % 0 % (-); Platelet Count 251 10^3/uL (130-400); Red Cell Dist. Width 13.1 % (11.5-14.5)
[2024-12-15 12:46] LABS: ALT (SGPT) 15 U/L (0-50); AST (SGOT) 19 U/L (17-59); Albumin 4.5 g/dl (3.5-5.0); Alkaline Phosphatase 123 U/L (38-126); Blood Urea Nitrogen 25 mg/dl (9-20); Calcium 9.1 mg/dl (8.4-10.2); Carbon Dioxide 24 mmol/L (22-30); Chloride 107 mmol/L (98-107); Glucose 99 mg/dl (70-99); Potassium 4.8 mmol/L (3.5-5.1); Sodium 137 mmol/L (135-145); Total Protein 6.3 g/dl (6.3-8.2); eGFR 42.04
== END ==
LOC: REG 11:09
PROVIDERS: FAMILY PHYSICIAN Internal Medicine
DX: G62.89 Other specified polyneuropathies (principal); G62.9 Polyneuropathy, unspecified
CPT/HCPCS: 36415; 80053; 85025

== ENCOUNTER → 2025-02-03 12:21 | Outpatient (REF) | payer MEDICARE, SELFPAY ==
[2025-02-03 13:24] LABS: Hematocrit 33.0 % (39.0-52.0); Hemoglobin 10.9 g/dL (13.0-18.0); Mean Corp Hgb Conc. 33.0 g/dL (33.0-37.0); Mean Corpuscular Volume 86.6 fL (80.0-94.0); Nucleated Red Blood Cells % 0 % (-); Platelet Count 226 10^3/uL (130-400); Red Cell Dist. Width 13.3 % (11.5-14.5)
[2025-02-03 13:33] LABS: INR 1.05; PT 13.5 Sec (11.4-14.6)
[2025-02-04 18:59] LABS: Hepatitis B Surface Antigen Negative (Negative)
== END ==
LOC: REG 12:21
PROVIDERS: FAMILY PHYSICIAN Internal Medicine
DX: R79.1 Abnormal coagulation profile (principal); D80.1 Nonfamilial hypogammaglobulinemia
CPT/HCPCS: 36415; 82565; 82784; 85025; 85610; 86704; 86706; 87340